=== PATIENT | female | born 1955 | race Caucasian/White ===

== ENCOUNTER 2018-09-22 07:25 | Day surgery (SDC) | payer BC ==
[2018-09-20 15:32] VITALS: BMI 24.7
[2018-09-22] MEDS ORDERED: LIDOCAINE HCL/PF 2% SDV 5ML VIAL ONE ×2 (07:38→08:17)
[2018-09-22] MEDS ORDERED: PROPOFOL 20 ML ONE ×4 (07:38→08:17)
[2018-09-22 07:48] VITALS: TEMP 97.7
[2018-09-22 09:20] VITALS: BP 112/59; PULSE 51
--- NOTE | 2018-09-27 15:42 | PATH ---
Surgical Pathology Report Patient Name: CINDY HYLTON [facility]. Rec. #: [id number] /Age/Gender: 1955 (Age: 63) / F Account: [id number] Location: [facility] Taken: 09/22/2018 Received: 09/22/2018 Reported: 09/27/2018 Physicians: Juan Pablo Lund M.D. Specimen(s) Received PROXIMAL SIGMOID COLON SNARE POLYPECTOMY AT 40 CM Clinical History Family history of colon cancer Postoperative diagnosis: Polyp Final Diagnosis PROXIMAL SIGMOID COLON AT 40 CM, POLYP, SNARE POLYPECTOMY: TUBULAR ADENOMA. Electronically Signed Alexia Toscano M.D. Gross Description Received in formalin, labeled "40 cm proximal sigmoid colon" are 2 otero, polypoid portions of soft tissue measuring 0.5 and 0.8 cm. in greatest dimension. The specimens are submitted in toto in one cassette. /09/23/201809/23/2018
== END 2018-09-22 09:30 | disposition home or self-care (01) ==
LOC: FASU-ENDO 07:25
PROVIDERS: ATTEND Internal Medicine Gastroenterology
PROC: 3E0H8GC Introduction of Other Therapeutic Substance into Lower GI, Via Natural or Artificial Opening Endoscopic (ICD-10-PCS; 2018-09-22)
PROC: 0DBN8ZX Excision of Sigmoid Colon, Via Natural or Artificial Opening Endoscopic, Diagnostic (ICD-10-PCS; principal; 2018-09-22 08:27)
DX: Z12.11 Encounter for screening for malignant neoplasm of colon (principal); Z80.0 Family history of malignant neoplasm of digestive organs; D12.5 Benign neoplasm of sigmoid colon
CPT/HCPCS: 88305-TC

== ENCOUNTER 2022-09-15 07:44 | Day surgery (SDC) | payer OTHER ==
[2022-09-10 11:49] VITALS: BMI 22.8
[2022-09-15 08:00] VITALS: RESP 16
[2022-09-15] MEDS ORDERED: ePHEDrine SULFATE 50 MG/1 ML AMPULE ONE (08:37)
[2022-09-15 09:14] VITALS: TEMP 97.5
[2022-09-15 09:32] VITALS: BP 140/71; PULSE 63
== END 2022-09-15 10:03 | disposition home or self-care (01) ==
LOC: FASU-ENDO 07:44
PROVIDERS: ATTEND Internal Medicine Gastroenterology
PROC: 0DBN8ZX Excision of Sigmoid Colon, Via Natural or Artificial Opening Endoscopic, Diagnostic (ICD-10-PCS; principal; 2022-09-15 08:48)
DX: Z12.11 Encounter for screening for malignant neoplasm of colon (principal); K63.5 Polyp of colon; Z86.010 Personal history of colon polyps; Z80.0 Family history of malignant neoplasm of digestive organs; K57.30 Diverticulosis of large intestine without perforation or abscess without bleeding
CPT/HCPCS: 88305-TC